=== PATIENT | female | born 2000 | race African-American/Black ===

== ENCOUNTER 2023-01-25 17:47 | Emergency (ER) | payer MEDICAID ==
[~2023-01-25] VITALS: Ht 170.2 cm; Wt 100.0 kg
[2023-01-25 17:57] VITALS: O2SAT 100
[2023-01-25 18:58] VITALS: BP 128/70; PULSE 78; RESP 18; TEMP 98.7
== END 2023-01-25 19:02 | disposition home or self-care (01) ==
LOC: ER 17:47
DX: K06.8 Other specified disorders of gingiva and edentulous alveolar ridge (principal)
CPT/HCPCS: 99281